=== PATIENT | male | born 1990 ===

== ENCOUNTER 2018-05-31 18:00 | Emergency (ER) | payer MEDICAID ==
--- NOTE | 2018-05-31 18:38 | ER Document Report ---
ED General - General Chief Complaint: Psych Problem Stated Complaint: PSYCH EVAL Time Seen by Provider: 05/31/18 18:24 Notes: 27-year-old male PMH schizophrenia recently discharged from [facility] and was given a bus ticket to travel back to his home town of [place] but instead decided to come here instead of using his bus ticket. He states that he wants to go back into the hospital because he wants to stay longer. He denies a ny suicidal ideations, homicidal ideations, visual hallucinations, but states that he has had auditory hallucinations (voices) and "Epiphanies" when he listens to rap music ongoing since 2011. These are at baseline and are unchanged from his baseline, per his report. He has no other complaints. He denies any illicit drug use but he did drink 2 beers earlier today. TRAVEL OUTSIDE OF THE [place] IN LAST 30 DAYS: No - Related Data Allergies/Adverse Reactions: iodine Allergy (Verified 05/31/18 18:13) Past Medical History - Social History Smoking Status: Current Every Day Smoker Chew tobacco use (# tins/day): No Frequency of alcohol use: None Drug Abuse: None Family History: Reviewed & Not Pertinent Patient has suicidal ideation: No Patient has homicidal ideation: No Renal/ Medical History: Denies: Hx Peritoneal Dialysis Psychiatric Medical History: Reports: Hx Schizophrenia Review of Systems - Review of Systems Notes: See history of present illness for pertinent positive review of systems; otherwise all review of systems have been reviewed and are negative Physical Exam - Vital signs Vitals: Temp Pulse Resp Pulse Ox 97.8 F 98 20 99 05/31/18 18:20 05/31/18 18:20 05/31/18 18:20 05/31/18 18:20 - Notes Notes: PHYSICAL EXAMINATION: GENERAL: Well-appearing and in no acute distress. HEAD: Atraumatic, normocephalic. EYES: Pupils equal round and reactive to light, extraocular movements intact, sclera anicteric, conjunctiva are normal. ENT: nares patent, oropharynx clear without exudates. Moist mucous membranes. NECK: Normal range of motion, supple without lymphadenopathy LUNGS: CTAB and equal. No wheezes rales or rhonchi. HEART: Regular rate and rhythm without murmurs ABDOMEN: Soft, no tenderness. No facial grimacing/wincing upon palpation. No guarding, no rebound. EXTREMITIES: Normal range of motion, no pitting edema. No cyanosis. NEUROLOGICAL: Cranial nerves grossly intact. Normal sensory/motor exams. PSYCH: Normal mood, normal affect. He is not currently suicidal, homicidal, or hallucinating. He seems to have intact insight and judgment. SKIN: Warm, Dry, normal turgor, no rashes or lesions noted Course - Re-evaluation Re-evalutation: 05/31/18 18:38 MEDICAL DECISION MAKING: I have performed a medical screening exam on this patient He does not have any SI HI or active hallucinations He does not have an emergency medical condition at this time He is refusing blood pressure despite multiple requests to get his blood pressure He is well-appearing and mentating well I discussed with him if his blood pressure is dangerously high or dangerously low, he could He continues to not allow us to obtain blood pressure, against my medical advice He does not meet criteria for IVC or inpatient psychiatric hospitalization He does verbalize that it is cold outside and he would like to stay overnight However ED is very busy and we cannot give him a room to stay in However, I did invite the patient to stay in our lobby where it is warm I did also discuss with the patient it is very important for him to follow-up with outpatient psychiatric provider Patient understands and agrees to the plan of care - Vital Signs Vital signs: Temp Pulse Resp BP Pulse Ox 97.8 F 98 20 99 05/31/18 18:20 05/31/18 18:20 05/31/18 18:20 05/31/18 18:20 Discharge - Discharge Clinical Impression: Psychiatric problem Condition: Good Disposition: HOME, SELF-CARE Additional Instructions: Please follow-up with your outpatient psychiatric provider in the next day or few. Thank you for visiting [facility]. We appreciate the opportunity to care for you.
== END 2018-05-31 18:36 | disposition home or self-care (01) ==
LOC: ER 18:00
DX: F29 Unspecified psychosis not due to a substance or known physiological condition (principal); F17.200 Nicotine dependence, unspecified, uncomplicated
CPT/HCPCS: 99283